=== PATIENT | female | born 1950 | race Caucasian/White ===

== ENCOUNTER 2022-08-18 08:25 | Emergency (ER) | payer MEDICARE, BC ==
[~2022-08-18] VITALS: Ht 157.5 cm; Wt 60.8 kg
--- NOTE | 2022-08-18 08:49 | NUR ---
LAC #20, BLOOD DRAWN AND COLLECTED
--- NOTE | 2022-08-18 08:50 | NUR ---
UNABLE TO PROVIDE URINE AT THIS TIME, "MAYBE IN A FEW MINS" PER PT. SPECIMEN CUP PROVIDED TO PT. PT'S DTR AT BEDSIDE.
[2022-08-18 09:01] LABS: BASOPHILS % (AUTO) 0.2 % (0.0-2.0); EOSINOPHILS % (AUTO) 0.8 % (0.0-6.0); HEMATOCRIT 41 % (33-45); HEMOGLOBIN 12.9 g/dL (11.5-14.8); LYMPHOCYTES # (AUTO) 1.5 K/uL (0.8-4.8); LYMPHOCYTES % (AUTO) 15.6 % (20.0-44.0); MEAN CORPUSCULAR HGB CONC 32 g/dl (31.0-36.0); MEAN CORPUSCULAR VOLUME 77 fL (82-100); MONOCYTES # (AUTO) 0.8 K/uL (0.1-1.30); MONOCYTES % (AUTO) 8.3 % (2.0-12.0); NEUTROPHILS # (AUTO) 7.2 K/uL (1.8-8.9); NEUTROPHILS % (AUTO) 75.1 % (43.0-81.0); PLATELET COUNT (AUTO) 313 K/uL (150-450); RED BLOOD CELL COUNT(AUTO) 5.27 MIL/uL (4.0-5.2); WHITE BLOOD COUNT (AUTO) 9.6 K/uL (4.3-11.0)
[2022-08-18] MEDS ORDERED: IV NS 0.9% 250 ML IV ONE (09:13)
[2022-08-18] MEDS ORDERED: IOHEXOL-300 100 ML VIAL IV ONE (09:13)
--- NOTE | 2022-08-18 09:13 | NUR ---
PT TAKEN TO RADIOLOGY FOR CT
--- NOTE | 2022-08-18 09:13 | NUR ---
PT TAKEN TO CT VIA [facility]
--- NOTE | 2022-08-18 09:30 | NUR ---
PT RETURNED FROM RADIOLOGY
[2022-08-18 09:32] LABS: ALBUMIN 3.4 g/dL (3.4-5.0); BILIRUBIN,DIRECT 0.2 mg/dL (0.0-0.2); BILIRUBIN,TOTAL 0.8 mg/dL (0.2-1.0); CALCIUM, SERUM 8.6 mg/dL (8.5-10.1); CREATININE 0.7 mg/dL (0.6-1.3); POTASSIUM 3.6 mmol/L (3.5-5.1); TOTAL PROTEIN, SERUM 6.3 g/dL (6.4-8.2)
--- NOTE | 2022-08-18 09:45 | NUR ---
PRESS WRITER AT BEDSIDE
--- NOTE | 2022-08-18 09:51 | NUR ---
PT STILL UNABLE TO PROVIDE URINE, HAVEN'T FELT THE NEED YET PER PT.
--- NOTE | 2022-08-18 11:11 | NUR ---
IV removed. Catheter intact and site benign. Pressure and 4x4 applied to site. No bleeding noted.Patient discharged to home in stable condition. Written and verbal after care instructions given. Patient verbalizes understanding of instruction.
[2022-08-18 11:12] VITALS: BP 131/66
== END 2022-08-18 11:12 | disposition home or self-care (01) ==
LOC: ER 08:29
DX: E87.1 Hypo-osmolality and hyponatremia (principal); R10.84 Generalized abdominal pain; K59.00 Constipation, unspecified; Z88.0 Allergy status to penicillin
CPT/HCPCS: 36415; 71045-TC; 80048-TC; 80076-TC; 83690-TC; 85025-TC; J7050; Q9967